=== PATIENT | female | born 1975 | race Caucasian/White ===

== ENCOUNTER 2022-12-18 22:51 | Inpatient (IN) | payer MEDICAID, SELFPAY ==
--- NOTE | 2022-12-18 22:00 | PC.NURSE ---
Admission Pt arrived via EMS to ER then escorted to the unit. Pt is a direct admit from [facility]. Pt was brought in due to EMS being called to her apartment and upon their arrival they found the pt hanging from a nylon rope in which they had to cut the noose from around her throat. Pt states she has lost her job, car, has no family support system, and found out her boyfriend is cheating on her. Pt states that she hung herself to get my boyfriends attention . Pt was anxious upon arrival to the unit but cooperative. vitals were stable. Pt oriented to unit and Pt room and read the rules of unit. Pt was offered drink and snack which were accepted.
[2022-12-18 23:07] VITALS: BP 121/72; PULSE 91; RESP 12; TEMP 36.7; O2SAT 95
[2022-12-18 23:08] VITALS: BMI 30.1
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
[2022-12-19] MEDS: haloperidol 5 mg Tablet PO (08:25)
--- NOTE | 2022-12-19 10:29 | PC.NURSE ---
PT VERY TEARFUL AND UPSET UPON INITIAL ASSESSMENT. PT DENIES SI/HI AND AVH AT THIS TIME. PT VERY ANIMATED AND THROWING SHEETS IN THE AIR WHEN ATTEMPTING TO MAKE BED APPEARING IF SHE COULD NOT MAKE IT HERSELF SO ROOM MATE HELPED. PT STATES SHE IS VERY DEPRESSED AND ANXIOUS AND REQUESTED MEDICATION FOR ANXIETY. PT WAS GIVEN HALDOL 5 MG ORDERED. PT ALSO WANTED CIELO RESTARTED, INFORMED PT I WOULD ASK DR. LEHMAN. DENIES PAIN. DENIES SI/HI AND AVH AT THIS TIME.
--- NOTE | 2022-12-19 11:56 | PC.NURSE ---
NEW ORDERS RECEIVED TO START GEODON 20 MG BID WITH FIRST DOSE NOW. PT TOOK WITHOUT ISSUE.
[2022-12-19] MEDS: ziprasidone hcl 20 mg Capsule PO ×2 (11:57→20:20)
[2022-12-19 13:09] LABS: Add Urine Microscopic? YES; Bilirubin Urine 1+ (Negative); Blood Urine Neg (Negative); Glucose Urine UA Norm (Normal); Ketones Urine 1+ (Negative); Leukocyte Esterase Urine Negative (Negative); Nitrate Urine Negative (Negative); Protein Urine Neg (Negative); Urine Appearance SL Hazy (CLEAR); Urine Color Yellow (Yellow); Urobilinogen Urine Norm (Negative); pH Urine 6 (5-7)
[2022-12-19 13:15] LABS: Add Urine Culture? No; Bacteria Urine 4+ /hpf; RBC Urine 0-4 /hpf (0-2); WBC Urine >100 /hpf (0-5)
[2022-12-19 14:00] VITALS: BP 122/79; PULSE 72; RESP 17; TEMP 36.6; O2SAT 99
[2022-12-19 21:14] VITALS: BP 133/86; PULSE 78; RESP 16; TEMP 37.1; O2SAT 100
[2022-12-20] MEDS: ziprasidone hcl 20 mg Capsule PO ×2 (05:56→16:43)
[2022-12-20 06:00] VITALS: BP 131/90; PULSE 101; RESP 18; TEMP 36.8; O2SAT 96
[2022-12-20 06:39] VITALS: PULSE 104; RESP 18; O2SAT 96
[2022-12-20] MEDS: albuterol 2.5 mg/3 mL Neb INHALATION (06:39)
[2022-12-20] MEDS: nicotine 2 mg Gum BUCCAL (10:52)
[2022-12-20] MEDS: OLANZapine 5 mg ODT PO (11:19)
[2022-12-20 14:00] VITALS: BP 111/74; PULSE 81; RESP 17; TEMP 36.7; O2SAT 100
--- NOTE | 2022-12-20 17:45 | P.NPUPN_ITS ---
Subjective NPU Subjective: Patient presented today reporting that she is feeling better than yesterday and adjusting to her medication. She said all the things that she was supposed to say about her recovery and finally getting it about having a problem with drugs. She reports that before she did not believe she had a problem with drugs. And now her plan is that [facility] and that she will be fine without intensive sober living services. We discussed that the people that have success with sobriety engage in treatment related to their sobriety. She seems to be mostly focused on what it would take to be discharged. Mental Status Exam MSE Comments: This is an overweight versus obese white female, in hospital scrubs, with limited grooming and eye contact, with significant tattooing on exposed skin, including her neck and face. No abnormal movements, except for psychomotor retardation. Cooperative with exam in mild distress. Speech was decreased rate and volume. Mood described as pretty good; affect subdued and appearing confused about having to stay. Thought process, organized. Thought content: patient denied any suicidal or homicidal ideation, there were no delusions reported or noted, patient denied any auditory or visual hallucinations. Attention, concentration, and memory appeared intact, but none were formally tested. Alert and oriented times three. Insight and judgment are limited. Impulse control is impaired Vitals/I&O/Wt Last Vital Signs Temp 98.6 F 12/20/22 20:29 Pulse 93 12/20/22 20:41 Resp 16 12/20/22 20:41 BP 136/82 12/20/22 20:29 Pulse Ox 96 12/20/22 20:41 O2 Del Method Room Air 12/20/22 20:41 A&P Assessment and plan (1) Methamphetamine use disorder, severe: (2) Psychosis: (3) Nonadherence to medication: Plan A 47-year-old white female with a long history of addiction and mental health challenges who presents to the hospital after a relapse and nonadherence to medication who presents open to having medications restarted. She is on a 96- hour hold. 1. Continue/restarted medications. 2. Encourage individual, group, and milieu therapy. 3. Continue q-15 minute checks for safety. 4. Encourage sober living treatment after discharge at the highest level of care to which she is willing to commit. Involuntary Hold Information 96 Hour Hold: 96 Hour Involuntary Admission: Yes Attestations NPU Medical Necessity Statement*: Inpatient hospitalization is medically necessary and the clinically appropriate intervention, at this time. We will monitor medications and make changes as indicated. Likely length of stay is 3-5 days. Coding Level of Care Code Acute Code for Chg Fwd Diagnoses Methamphetamine use disorder, severe F15.20 Psychosis F29 Nonadherence to medication Z91.148
[2022-12-20 20:29] VITALS: BP 136/82; PULSE 76; RESP 18; TEMP 37; O2SAT 96
[2022-12-20 20:41] VITALS: PULSE 93; RESP 16; O2SAT 96
[2022-12-21 06:00] VITALS: RESP 15
[2022-12-21] MEDS: ziprasidone hcl 20 mg Capsule PO ×2 (08:53→18:37)
[2022-12-21] MEDS: nicotine 2 mg Gum BUCCAL ×4 (09:28→18:39)
[2022-12-21] MEDS: OLANZapine 5 mg ODT PO ×2 (10:02→16:00)
[2022-12-21] MEDS: ciprofloxacin 500 mg Tablet PO ×2 (12:31→20:23)
[2022-12-21] MEDS: hyDROXYzine 25 mg Capsule 50 MG PO (12:48)
[2022-12-21 13:04] VITALS: PULSE 108; RESP 18; O2SAT 100
[2022-12-21 14:00] VITALS: BP 114/69; PULSE 94; RESP 16; TEMP 36.7; O2SAT 97
--- NOTE | 2022-12-21 17:05 | W.PM.NPUPNS ---
Subjective NPU Subjective: Patient presented today reporting that she is feeling better. She reports significant distress regarding being able to get home and care for her who she reports has Claudia's disease. She has significant frustration not feeling this database report writer believes that she is going to be able to maintain her sobriety. We discussed the fact that she is behaving as if she has been in the hospital for days and days when she has not even been in for 72 hours. We discussed that each day is an additional day of sobriety and given her plan to not consider inpatient services those days will be valuable. Mental Status Exam MSE Comments: This is an overweight versus obese white female, in hospital scrubs, with limited grooming and eye contact, with significant tattooing on exposed skin, including her neck and face. No abnormal movements, except for mild psychomotor retardation. Cooperative with exam in mild distress. Speech was decreased rate and volume. Mood described as pretty good; affect subdued and appearing confused about having to stay. Thought process, organized. Thought content: patient denied any suicidal or homicidal ideation, there were no delusions reported or noted, patient denied any auditory or visual hallucinations. Attention, concentration, and memory appeared intact, but none were formally tested. Alert and oriented times three. Insight and judgment are limited. Impulse control is impaired Vitals/I&O/Wt Last Vital Signs Temp 98.1 F 12/21/22 14:00 Pulse 84 12/21/22 20:00 Resp 16 12/21/22 20:00 BP 114/69 12/21/22 14:00 Pulse Ox 95 12/21/22 20:00 O2 Del Method Room Air 12/21/22 20:00 A&P Assessment and plan (1) Methamphetamine use disorder, severe: (2) Psychosis: (3) Nonadherence to medication: Plan A 47-year-old white female with a long history of addiction and mental health challenges who presents to the hospital after a relapse and nonadherence to medication who presents open to having medications restarted. She is on a 96-hour hold. 1. Continue/restarted medications. 2. Encourage individual, group, and milieu therapy. 3. Continue q-15 minute checks for safety. 4. Encourage sober living treatment after discharge at the highest level of care to which she is willing to commit. He continues to be resistant to a longer more intense inpatient rehab citing finances. Involuntary Hold Information 96 Hour Hold: 96 Hour Involuntary Admission: Yes Attestations NPU Medical Necessity Statement*: Inpatient hospitalization is medically necessary and the clinically appropriate intervention, at this time. We will monitor medications and make changes as indicated. Likely length of stay is 1-3 days. Coding Level of Care Code Acute Code for Chg Fwd Diagnoses Methamphetamine use disorder, severe F15.20 Psychosis F29 Nonadherence to medication Z91.148
[2022-12-21] MEDS: haloperidol 5 mg Tablet PO (18:39)
[2022-12-21 20:00] VITALS: PULSE 84; RESP 16; O2SAT 95
[2022-12-21 22:00] VITALS: RESP 15
[2022-12-22 06:00] VITALS: TEMP -8.8; TEMP 16
[2022-12-22] MEDS: ciprofloxacin 500 mg Tablet PO ×2 (08:27→20:19)
[2022-12-22] MEDS: ziprasidone hcl 20 mg Capsule PO ×2 (08:28→18:33)
[2022-12-22] MEDS: nicotine 2 mg Gum BUCCAL ×2 (08:28→18:47)
--- NOTE | 2022-12-22 08:48 | PC.NURSE ---
pt calm and cooperative with assessment and willing to anwser questions. pt currently denies si/hi/ah/vh. pt states that she is feeling well this morning. pt current needs are met.
[2022-12-22] MEDS: hyDROXYzine 25 mg Capsule 50 MG PO (09:05)
[2022-12-22 14:00] VITALS: BP 124/86; PULSE 101; RESP 20; TEMP 36.8; O2SAT 99
[2022-12-22 15:30] VITALS: PULSE 101; RESP 20; O2SAT 99
--- NOTE | 2022-12-22 16:38 | P.NPUPN_ITS ---
Subjective NPU Subjective: Patient presented today continue to have fairly high frustration about not being discharged. She is planning to adjust her medication a little better and seeming less lethargic in general. She spent most of the time talking about employment opportunities that prevent her considering inpatient rehab. She reported talking to employer late yesterday's [place]. Clear that we are not going to start memorial day weekend. Discussed concerns about her quickly falling back into use if appropriate follow-up he is not maintained Mental Status Exam MSE Comments: This is an overweight versus obese white female, in hospital scrubs, with limited grooming and eye contact, with significant tattooing on exposed skin, including her neck and face. No abnormal movements, except for resolving psychomotor retardation. Cooperative with exam in mild distress. Speech was decreased rate and volume. Mood described as frustrated; affect congruent and less subdued. Thought process, organized. Thought content: patient denied any suicidal or homicidal ideation, there were no delusions reported or noted, patient denied any auditory or visual hallucinations. Attention, concentration, and memory appeared intact, but none were formally tested. Alert and oriented times three. Insight and judgment are limited. Impulse control is impaired. Vitals/I&O/Wt Last Vital Signs Temp 98.2 F 12/22/22 14:00 Pulse 101 H 12/22/22 15:30 Resp 20 H 12/22/22 15:30 BP 124/86 12/22/22 14:00 Pulse Ox 99 12/22/22 15:30 O2 Del Method Room Air 12/22/22 15:30 A&P Assessment and plan (1) Methamphetamine use disorder, severe: (2) Psychosis: (3) Nonadherence to medication: Plan A 47-year-old white female with a long history of addiction and mental health jeri galvin who presents to the hospital after a relapse and nonadherence to medication who presents open to having medications restarted. She is on a 96- hour hold. 1. Continue/restarted medications. 2. Encourage individual, group, and milieu therapy. 3. Continue q-15 minute checks for safety. 4. Encourage sober living treatment after discharge at the highest level of care to which she is willing to commit. He continues to be resistant to a longer more intense inpatient rehab citing finances. 5. Plan for discharge in the morning. Involuntary Hold Information 96 Hour Hold: 96 Hour Involuntary Admission: Yes Attestations NPU Medical Necessity Statement*: Inpatient hospitalization is medically necessary and the clinically appropriate intervention, at this time. We will monitor medications and make changes as indicated. Plan for discharge tomorrow. Coding Level of Care Code Acute Code for Chg Fwd Diagnoses Methamphetamine use disorder, severe F15.20 Psychosis F29 Nonadherence to medication Z91.148
[2022-12-22 20:00] VITALS: PULSE 101; RESP 18; O2SAT 99
[2022-12-22 22:00] VITALS: RESP 18
[2022-12-23 05:57] VITALS: RESP 16
[2022-12-23 06:00] VITALS: BMI 30.1
[2022-12-23] MEDS: ziprasidone hcl 20 mg Capsule PO (08:45)
[2022-12-23] MEDS: ciprofloxacin 500 mg Tablet PO (08:45)
[2022-12-23] MEDS: nicotine 2 mg Gum BUCCAL (09:26)
[2022-12-23 09:33] VITALS: BP 121/85; PULSE 110; RESP 18; TEMP 36.4; O2SAT 97
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
[2022-12-23 10:11] VITALS: BP 121/85; PULSE 110; RESP 18; TEMP 36.4; O2SAT 97
[2022-12-23 10:14] LABS: Add Urine Microscopic? NO; Charge for UA Resulting for Rev
[2022-12-23 10:20] LABS: Bilirubin Urine Neg (Negative); Blood Urine Neg (Negative); Glucose Urine UA Norm (Normal); Ketones Urine Negative (Negative); Leukocyte Esterase Urine Negative (Negative); Nitrate Urine Negative (Negative); Protein Urine Neg (Negative); Urine Appearance Clear (CLEAR); Urine Color Straw (Yellow); Urobilinogen Urine Norm (Negative); pH Urine 5 (5-7)
--- NOTE | 2022-12-23 14:55 | PC.NURSE ---
WRITTEN DISCHARGE INSTRUCTION DISCUSSED AND LEFT WITH PATIENT. PT STATED UNDERSTANDING AND COMPLIANCE. PT LEFT WITH [facility].
== END 2022-12-23 14:56 | disposition home or self-care (01) | DRG 885 ==
PROVIDERS: Admitting Provider Psychiatry & Neurology Psychiatry; Visit Provider Psychiatry & Neurology Psychiatry
DX: F29 Unspecified psychosis not due to a substance or known physiological condition (principal); F15.20 Other stimulant dependence, uncomplicated; R45.851 Suicidal ideations; F17.210 Nicotine dependence, cigarettes, uncomplicated; F32.A Depression, unspecified; F41.9 Anxiety disorder, unspecified; J44.9 Chronic obstructive pulmonary disease, unspecified; Z91.148 Patient's other noncompliance with medication regimen for other reason
CPT/HCPCS: 81001; 81003; 94640; 97150; 97165; 99238; J7613